=== PATIENT | female | born 1965 | race Caucasian/White ===

== ENCOUNTER 2017-06-16 09:54 | Emergency (ER) | payer BC ==
[~2017-06-16] VITALS: Ht 172.7 cm; Wt 54.5 kg
[~2017-06-16 09:54] MED LIST: ALBU8.5H8 INH; BUPR-84 PO; DULO30CA51 PO; GABA-532 PO; LITH150C8 PO; LORA0.5T PO; OXCA150T PO; PRAM0.258 PO; SYN0.088T PO; TEMA15CA PO; TRAM50TA2 PO
[2017-06-16] MEDS ORDERED: LORazepam 1 MG tablet PO ONE (11:10)
[2017-06-16] MEDS ORDERED: ziprasidone 20mg capsule PO SCH (11:10)
[2017-06-16] MEDS ORDERED: ACAM333T8 PO (11:28)
[2017-06-16] MEDS ORDERED: MESA1.2T PO ×2 (11:28→14:14)
[2017-06-16] MEDS ORDERED: FAMO20TA8 PO (11:28)
[2017-06-16] MEDS ORDERED: LURA20TA PO (11:28)
[2017-06-16] MEDS ORDERED: DISU250T7 PO (11:28)
[2017-06-16] MEDS ORDERED: LEVE500T PO (11:29)
[2017-06-16] MEDS ORDERED: ROPI0.252 PO (11:29)
[2017-06-16] MEDS ORDERED: LORazepam 2 mg/ml vial IM ONE (11:50)
[2017-06-16] MEDS ORDERED: diphenhydrAMINE 50 mg/ml inj IM ONE (11:50)
[2017-06-16 12:37] LABS: BASOPHILS % (AUTO) 0.2 % (0-1); EOSINOPHILS # (AUTO) 0.8 X10'3 (0-0.9); EOSINOPHILS % (AUTO) 8.5 % (0-6); HEMATOCRIT 48.8 % (35.0-45.0); LYMPHOCYTES # (AUTO) 3.1 X10'3 (1.1-4.8); LYMPHOCYTES % (AUTO) 33.7 % (21-51); MEAN CORPUSCULAR HEMOGLOBIN 28.7 PG (27.0-31.0); MEAN CORPUSCULAR HGB CONC 34.8 % (33.0-36.5); MEAN CORPUSCULAR VOLUME 82.5 FL (78-98); MEAN PLATELET VOLUME 6.8 FL (7.4-10.4); MONOCYTES # (AUTO) 0.2 X10'3 (0-0.9); NEUTROPHILS # (AUTO) 5.1 X10'3 (1.8-7.7); NEUTROPHILS % (AUTO) 55.6 % (42-75); PLATELET COUNT 298 X10'3 (140-440); RED BLOOD COUNT 5.92 X10'6 (4.20-5.60); RED CELL DISTRIBUTION WIDTH 13.9 % (11.5-14.5); WHITE BLOOD COUNT 9.2 X10'3 (4.5-11.0)
[2017-06-16 13:01] LABS: ALANINE AMINOTRANSFERASE 51 U/L (12-78); ALBUMIN 4.7 G/DL (3.4-5.0); ALBUMIN/GLOBULIN RATIO 1.3 (1.1-1.5); ALKALINE PHOSPHATASE 120 IU/L (46-116); ANION GAP 17 (8-16); ASPARTATE AMINO TRANSFERASE 42 U/L (10-37); BILIRUBIN,TOTAL 0.6 MG/DL (0.1-1.0); BLOOD UREA NITROGEN 11 MG/DL (7-18); BUN/CREATININE RATIO 11.1 (6.6-38.0); CALCIUM 9.2 MG/DL (8.5-10.1); CHLORIDE 107 MMOL/L (99-107); CREATININE 0.99 MG/DL (0.40-0.90); GLUCOSE 75 MG/DL (70-104); POTASSIUM 3.6 MMOL/L (3.5-5.1); SODIUM 147 MMOL/L (135-145); TOTAL CARBON DIOXIDE 23.4 MMOL/L (24-32); TOTAL PROTEIN 8.4 G/DL (6.4-8.2); eGFR 59 ML/MIN
[2017-06-16 13:02] LABS: URINE HCG NEGATIVE (NEG)
[2017-06-16 13:02] LABS: ACETAMINOPHEN < 2.0 UG/ML (10-30)
[2017-06-16 13:03] LABS: CLARITY,URINE Clear (Clear); COLOR,URINE Yellow (Yellow); GLUCOSE, URINE Negative (Neg); KETONES,URINE Negative (Neg); LEUKOCYTE ESTERASE ,URINE Trace (Neg); NITRITES, URINE Negative (Neg); OCCULT BLOOD,URINE Negative (Neg); PROTEIN,URINE Negative (Neg); UROBILINOGEN,URINE 0.2 E.U/dL (0.2-1.0)
[2017-06-16 13:12] LABS: UA COLLECTION TYPE CLN CATCH MIDSTREAM; URINE AMPHETAMINE SCREEN POSITIVE (Neg); URINE BARBITUATE SCREEN NEGATIVE (Neg); URINE BENZODIAZEPINES SCREEN NEGATIVE (Neg); URINE CANNABINOID SCREEN NEGATIVE (Neg); URINE COCAINE SCREEN NEGATIVE (Neg); URINE METHADONE SCREEN NEGATIVE (Neg); URINE OPIATE SCREEN NEGATIVE (Neg); URINE PHENCYCLIDINE SCREEN NEGATIVE (Neg)
[2017-06-16 13:18] LABS: BACTERIA,URINE NONE SEEN /HPF (Neg); RBC,URINE NONE SEEN /HPF (0-2); SQUAMOUS EPITHELIAL CELL,UR FEW /LPF (FEW); WBC,URINE NONE SEEN /HPF (0-4)
[2017-06-16] MEDS ORDERED: LITH450T2 PO (14:14)
[2017-06-16] MEDS ORDERED: PRAM0.122 PO (14:14)
[2017-06-16] MEDS ORDERED: GABA-532 PO (14:14)
[2017-06-16] MEDS ORDERED: DULO-31 PO (14:14)
[2017-06-16] MEDS ORDERED: SYN0.088T PO (14:29)
[2017-06-16] MEDS ORDERED: OXCA150T PO (14:46)
[2017-06-16] MEDS ORDERED: OXCA150T53 PO (14:46)
[2017-06-16] MEDS ORDERED: albuterol 2.5 MG/3 ML nebule NEB PRN (16:00)
[2017-06-16] MEDS: acamprosate DR 333mg Tablet PO SCH (21:00)
[2017-06-16] MEDS ORDERED: pramipexole 0.25mg tablet PO SCH (21:00)
[2017-06-16] MEDS: gabapentin 300mg capsule PO SCH (21:03)
[2017-06-16] MEDS: levetiracetam 250mg tablet PO SCH (21:03)
[2017-06-16] MEDS: oxcarbazepine 150mg tablet PO SCH (21:04)
[2017-06-16] MEDS: lithium carbonate 450mg CR tablet PO SCH (21:05)
[2017-06-17] MEDS ORDERED: lurasidone 20mg tablet PO SCH (08:00)
[2017-06-17] MEDS ORDERED: mesalamine 1.2gm ER tablet PO SCH (08:00)
[2017-06-17] MEDS ORDERED: duloxetine 30mg CAPSULE.DR PO SCH (08:00)
[2017-06-17] MEDS ORDERED: levoTHYROXINE 88mcg tablet PO SCH (08:00)
[2017-06-17] MEDS: gabapentin 300mg capsule PO SCH (08:20)
[2017-06-17] MEDS: lithium carbonate 450mg CR tablet PO SCH (08:21)
[2017-06-17] MEDS: oxcarbazepine 150mg tablet PO SCH (08:21)
[2017-06-17] MEDS: acamprosate DR 333mg Tablet PO SCH (08:22)
[2017-06-17] MEDS: levetiracetam 250mg tablet PO SCH (08:32)
[2017-06-17] MEDS ORDERED: BUPR300T53 PO (09:06)
[2017-06-17] MEDS ORDERED: ibuprofen tablet 400 MG TABLET PO PRN (09:20)
[2017-06-17] MEDS ORDERED: buproprion 150mg XL (24-hour) tablet PO SCH (10:00)
[2017-06-17] MEDS ORDERED: buPROPion SR 150mg tablet PO SCH (10:30)
[2017-06-17] MEDS ORDERED: buPROPion SR 150mg tablet PO ONE (10:35)
[2017-06-17 12:46] VITALS: BP 101/65
== END 2017-06-17 12:49 | disposition home or self-care (01) ==
LOC: ER 09:54
DX: R45.851 Suicidal ideations (principal); F15.10 Other stimulant abuse, uncomplicated; F10.129 Alcohol abuse with intoxication, unspecified; F32.9 Major depressive disorder, single episode, unspecified
CPT/HCPCS: 36415; 80053; 80305; 80320; 80329; 81001; 81025; 84443; 85025; 96372; 99285; J1200; J2060

== ENCOUNTER 2017-11-14 18:30 | Inpatient (IN) | payer BC ==
[~2017-11-14] VITALS: Ht 170.2 cm; Wt 60.6 kg
[~2017-11-14 18:30] MED LIST changes: -ALBU8.5H8 INH; -BUPR-84 PO; +DULO-31 PO; -DULO30CA51 PO; +LEVE500T PO; -LITH150C8 PO; +LITH450T2 PO; -LORA0.5T PO; +MESA1.2T PO; +PRAM0.122 PO; -PRAM0.258 PO; -SYN0.088T PO; -TEMA15CA PO; -TRAM50TA2 PO
[2017-11-14] MEDS ORDERED: magnesium hydroxide 30ml (MOM) UD suspension PO PRN (23:00)
[2017-11-14] MEDS ORDERED: mag hydrox/Alum hydrox/simeth 30ml oral suspension PO PRN (23:00)
[2017-11-15] MEDS ORDERED: BUPR150T8 PO (00:36)
[2017-11-15] MEDS ORDERED: QUET25TA PO ×2 (00:36→01:46)
[2017-11-15] MEDS ORDERED: PANT-47 PO (00:36)
[2017-11-15] MEDS ORDERED: DISU250T7 PO (00:36)
[2017-11-15] MEDS ORDERED: SYN0.088T PO (00:36)
[2017-11-15] MEDS ORDERED: FOLI0.4T2 PO (00:36)
[2017-11-15] MEDS ORDERED: FERR325T28 PO (00:36)
[2017-11-15] MEDS ORDERED: LACTC PO (00:36)
[2017-11-15] MEDS ORDERED: SENN-161 PO (00:36)
[2017-11-15] MEDS ORDERED: HYDR-565 PO (00:36)
[2017-11-15] MEDS ORDERED: TEMA30CA5 PO (00:36)
[2017-11-15] MEDS: temazepam 15mg capsule PO PRN ×2 (02:36→20:30)
[2017-11-15] MEDS: HYDROcodone/acetaminophen 10/325mg tab PO PRN ×4 (02:37→20:40)
[2017-11-15] MEDS ORDERED: BUPR300T54 PO (06:08)
[2017-11-15 08:00] VITALS: BP 98/63
[2017-11-15] MEDS ORDERED: BUPROPION HCL PO SCH (08:00)
[2017-11-15] MEDS ORDERED: buPROPion SR 150mg tablet PO SCH ×2 (08:00)
[2017-11-15] MEDS ORDERED: DISULFIRAM 250 MG PO SCH (08:00)
[2017-11-15] MEDS: gabapentin 300mg capsule PO SCH ×3 (08:02→20:30)
[2017-11-15] MEDS: folic acid 1mg tablet PO SCH (08:02)
[2017-11-15] MEDS: duloxetine 30mg CAPSULE.DR PO SCH (08:02)
[2017-11-15] MEDS: lactobacillus rhamnosus 10,000 MMU CELLS/CAPSULE PO SCH (08:02)
[2017-11-15] MEDS: ferrous sulfate 325mg tablet PO SCH (08:03)
[2017-11-15] MEDS: levoTHYROXINE 75mcg tablet PO SCH (08:03)
[2017-11-15] MEDS: pantoprazole 40mg Tablet.DR PO SCH (08:03)
[2017-11-15] MEDS: sennosides 8.6mg tablet PO PRN (08:12)
[2017-11-15 08:41] LABS: BASOPHILS # (AUTO) 0.1 X10'3 (0-0.2); BASOPHILS % (AUTO) 0.5 % (0-1); EOSINOPHILS # (AUTO) 0.3 X10'3 (0-0.9); EOSINOPHILS % (AUTO) 3.7 % (0-6); HEMATOCRIT 24.9 % (35.0-45.0); HEMOGLOBIN 8.4 g/dl (12.0-16.0); LYMPHOCYTES # (AUTO) 2.7 X10'3 (1.1-4.8); LYMPHOCYTES % (AUTO) 28.5 % (21-51); MEAN CORPUSCULAR HEMOGLOBIN 28.9 PG (27.0-31.0); MEAN CORPUSCULAR HGB CONC 33.6 % (33.0-36.5); MEAN CORPUSCULAR VOLUME 86.1 FL (78-98); MEAN PLATELET VOLUME 6.9 FL (7.4-10.4); MONOCYTES # (AUTO) 0.4 X10'3 (0-0.9); MONOCYTES % (AUTO) 4.7 % (2-12); NEUTROPHILS % (AUTO) 62.6 % (42-75); PLATELET COUNT 388 X10'3 (140-440); RED BLOOD COUNT 2.89 X10'6 (4.20-5.60); RED CELL DISTRIBUTION WIDTH 15.3 % (11.5-14.5); WHITE BLOOD COUNT 9.5 X10'3 (4.5-11.0)
[2017-11-15 08:53] LABS: ALANINE AMINOTRANSFERASE 32 U/L (12-78); ALBUMIN 2.1 G/DL (3.4-5.0); ALBUMIN/GLOBULIN RATIO 0.4 (1.1-1.5); ALKALINE PHOSPHATASE 138 IU/L (46-116); ANION GAP 9 (8-16); ASPARTATE AMINO TRANSFERASE 16 U/L (10-37); BILIRUBIN,TOTAL 0.3 MG/DL (0.1-1.0); BLOOD UREA NITROGEN 14 MG/DL (7-18); BUN/CREATININE RATIO 11.1 (6.6-38.0); CALCIUM 8.9 MG/DL (8.5-10.1); CHLORIDE 102 MMOL/L (99-107); CHOL/HDL RATIO 3.3 (0.00-4.99); CHOLESTEROL 121 MG/DL (0-200); CREATININE 1.26 MG/DL (0.40-0.90); GLUCOSE 85 MG/DL (70-104); HDL CHOLESTEROL 37 MG/DL (35-60); LDL CHOLESTEROL 68 MG/DL (50-100); POTASSIUM 3.8 MMOL/L (3.5-5.1); SODIUM 138 MMOL/L (135-145); TOTAL CARBON DIOXIDE 27.3 MMOL/L (24-32); TOTAL PROTEIN 7.5 G/DL (6.4-8.2); TRIGLYCERIDES 125 MG/DL (20-135); eGFR 45 ML/MIN
[2017-11-15 09:11] LABS: HEMOGLOBIN A1C 5.3 % (4.5-6.2)
[2017-11-15] MEDS: buPROPion SR 100mg tab PO SCH (12:57)
[2017-11-15 20:00] VITALS: BP 101/71
[2017-11-15] MEDS ORDERED: QUEtiapine 25mg tablet PO PRN (21:00)
[2017-11-16] MEDS: HYDROcodone/acetaminophen 10/325mg tab PO PRN ×3 (06:52→16:02)
[2017-11-16] MEDS: levoTHYROXINE 75mcg tablet PO SCH (06:52)
[2017-11-16] MEDS: gabapentin 300mg capsule PO SCH ×3 (07:52→20:25)
[2017-11-16] MEDS: folic acid 1mg tablet PO SCH (07:52)
[2017-11-16] MEDS: duloxetine 30mg CAPSULE.DR PO SCH (07:53)
[2017-11-16] MEDS: pantoprazole 40mg Tablet.DR PO SCH (07:53)
[2017-11-16] MEDS: buPROPion SR 100mg tab PO SCH ×2 (07:53→12:30)
[2017-11-16] MEDS: lactobacillus rhamnosus 10,000 MMU CELLS/CAPSULE PO SCH (07:53)
[2017-11-16] MEDS: ferrous sulfate 325mg tablet PO SCH (07:53)
[2017-11-16 08:00] VITALS: BP 96/68
[2017-11-16 08:04] LABS: BASOPHILS % (AUTO) 0.4 % (0-1); EOSINOPHILS # (AUTO) 0.3 X10'3 (0-0.9); EOSINOPHILS % (AUTO) 3.1 % (0-6); HEMATOCRIT 25.2 % (35.0-45.0); HEMOGLOBIN 8.4 g/dl (12.0-16.0); LYMPHOCYTES # (AUTO) 2.3 X10'3 (1.1-4.8); LYMPHOCYTES % (AUTO) 21.7 % (21-51); MEAN CORPUSCULAR HEMOGLOBIN 28.7 PG (27.0-31.0); MEAN CORPUSCULAR HGB CONC 33.6 % (33.0-36.5); MEAN CORPUSCULAR VOLUME 85.5 FL (78-98); MEAN PLATELET VOLUME 6.9 FL (7.4-10.4); MONOCYTES # (AUTO) 0.4 X10'3 (0-0.9); MONOCYTES % (AUTO) 4.2 % (2-12); NEUTROPHILS # (AUTO) 7.4 X10'3 (1.8-7.7); NEUTROPHILS % (AUTO) 70.6 % (42-75); PLATELET COUNT 415 X10'3 (140-440); RED BLOOD COUNT 2.94 X10'6 (4.20-5.60); RED CELL DISTRIBUTION WIDTH 15.8 % (11.5-14.5); WHITE BLOOD COUNT 10.4 X10'3 (4.5-11.0)
[2017-11-16] MEDS: sennosides 8.6mg tablet PO PRN (08:06)
[2017-11-16 19:53] VITALS: BP 104/72
[2017-11-16] MEDS: temazepam 15mg capsule PO PRN (21:32)
[2017-11-17] MEDS: HYDROcodone/acetaminophen 10/325mg tab PO PRN ×2 (07:37→12:57)
[2017-11-17] MEDS: levoTHYROXINE 75mcg tablet PO SCH (07:40)
[2017-11-17] MEDS: buPROPion SR 100mg tab PO SCH ×2 (07:40→12:53)
[2017-11-17 08:00] VITALS: BP 104/65
[2017-11-17] MEDS: Protein Shake (high protein) 240ml (8oz) cup PO SCH ×3 (08:00→18:00)
[2017-11-17] MEDS: duloxetine 30mg CAPSULE.DR PO SCH (08:13)
[2017-11-17] MEDS: gabapentin 300mg capsule PO SCH ×3 (08:13→20:15)
[2017-11-17] MEDS: lactobacillus rhamnosus 10,000 MMU CELLS/CAPSULE PO SCH (08:14)
[2017-11-17] MEDS: sennosides 8.6mg tablet PO PRN (08:14)
[2017-11-17] MEDS: ferrous sulfate 325mg tablet PO SCH (08:14)
[2017-11-17] MEDS: pantoprazole 40mg Tablet.DR PO SCH (08:15)
[2017-11-17] MEDS: folic acid 1mg tablet PO SCH (08:15)
[2017-11-17 20:00] VITALS: BP 106/66
[2017-11-17] MEDS: HYDROcodone/acetaminophen 5mg/325mg tablet PO PRN (20:16)
[2017-11-17] MEDS: temazepam 15mg capsule PO PRN (21:29)
[2017-11-18] MEDS: buPROPion SR 100mg tab PO SCH ×2 (07:07→12:46)
[2017-11-18] MEDS: levoTHYROXINE 75mcg tablet PO SCH (07:07)
[2017-11-18] MEDS: acetaminophen 325mg tablet PO PRN ×3 (07:07→18:02)
[2017-11-18 08:00] VITALS: BP 98/60
[2017-11-18] MEDS: lactobacillus rhamnosus 10,000 MMU CELLS/CAPSULE PO SCH (08:23)
[2017-11-18] MEDS: ferrous sulfate 325mg tablet PO SCH (08:23)
[2017-11-18] MEDS: pantoprazole 40mg Tablet.DR PO SCH (08:23)
[2017-11-18] MEDS: duloxetine 30mg CAPSULE.DR PO SCH (08:23)
[2017-11-18] MEDS: folic acid 1mg tablet PO SCH (08:23)
[2017-11-18] MEDS: gabapentin 300mg capsule PO SCH ×3 (08:23→21:45)
[2017-11-18] MEDS: Protein Shake (high protein) 240ml (8oz) cup PO SCH ×3 (08:53→18:00)
[2017-11-18] MEDS: sennosides 8.6mg tablet PO PRN (08:54)
[2017-11-18 19:00] VITALS: BP 112/72
[2017-11-18] MEDS: temazepam 15mg capsule PO PRN (21:45)
[2017-11-19] MEDS: acetaminophen 325mg tablet PO PRN ×3 (04:33→21:31)
[2017-11-19] MEDS: HYDROcodone/acetaminophen 5mg/325mg tablet PO PRN (05:38)
[2017-11-19] MEDS: pantoprazole 40mg Tablet.DR PO SCH (07:13)
[2017-11-19] MEDS: buPROPion SR 100mg tab PO SCH ×2 (07:13→12:26)
[2017-11-19] MEDS: levoTHYROXINE 75mcg tablet PO SCH (07:13)
[2017-11-19] MEDS: ferrous sulfate 325mg tablet PO SCH (07:55)
[2017-11-19] MEDS: lactobacillus rhamnosus 10,000 MMU CELLS/CAPSULE PO SCH (07:55)
[2017-11-19] MEDS: folic acid 1mg tablet PO SCH (07:56)
[2017-11-19] MEDS: duloxetine 30mg CAPSULE.DR PO SCH (07:56)
[2017-11-19] MEDS: gabapentin 300mg capsule PO SCH ×3 (07:56→20:07)
[2017-11-19 08:00] VITALS: BP 112/73
[2017-11-19] MEDS: Protein Shake (high protein) 240ml (8oz) cup PO SCH ×3 (08:00→18:00)
[2017-11-19] MEDS ORDERED: duloxetine 30mg CAPSULE.DR PO ONE (13:00)
[2017-11-19] MEDS ORDERED: HYDROcodone/acetaminophen 5mg/325mg tablet PO PRN (13:05)
[2017-11-19] MEDS ORDERED: bisacodyl 5mg tablet.DR PO ONE (18:05)
[2017-11-19 19:00] VITALS: BP 108/67
[2017-11-19] MEDS ORDERED: glycerin ADULT rectal suppository RC ONE (19:05)
[2017-11-19] MEDS ORDERED: ondansetron 4mg rapidly disintigrating tab PO PRN (19:05)
[2017-11-19 19:53] LABS: BASOPHILS # (AUTO) 0.1 X10'3 (0-0.2); BASOPHILS % (AUTO) 0.7 % (0-1); EOSINOPHILS # (AUTO) 0.4 X10'3 (0-0.9); EOSINOPHILS % (AUTO) 3.6 % (0-6); HEMATOCRIT 29.5 % (35.0-45.0); HEMOGLOBIN 9.9 g/dl (12.0-16.0); LYMPHOCYTES # (AUTO) 2.7 X10'3 (1.1-4.8); LYMPHOCYTES % (AUTO) 24.7 % (21-51); MEAN CORPUSCULAR HGB CONC 33.8 % (33.0-36.5); MEAN CORPUSCULAR VOLUME 85.8 FL (78-98); MEAN PLATELET VOLUME 6.5 FL (7.4-10.4); MONOCYTES # (AUTO) 0.4 X10'3 (0-0.9); MONOCYTES % (AUTO) 3.8 % (2-12); NEUTROPHILS # (AUTO) 7.3 X10'3 (1.8-7.7); NEUTROPHILS % (AUTO) 67.2 % (42-75); PLATELET COUNT 469 X10'3 (140-440); RED BLOOD COUNT 3.43 X10'6 (4.20-5.60); RED CELL DISTRIBUTION WIDTH 15.9 % (11.5-14.5); WHITE BLOOD COUNT 10.9 X10'3 (4.5-11.0)
[2017-11-19] MEDS ORDERED: metoclopramide 10mg tablet PO SCH (20:00)
[2017-11-19] MEDS: docusate sod 100mg capsule PO SCH (20:07)
[2017-11-19] MEDS: temazepam 15mg capsule PO PRN (21:30)
[2017-11-20] MEDS ORDERED: metoclopramide 10mg tablet PO PRN (02:00)
[2017-11-20] MEDS: pantoprazole 40mg Tablet.DR PO SCH (07:08)
[2017-11-20] MEDS: levoTHYROXINE 75mcg tablet PO SCH (07:08)
[2017-11-20 08:00] VITALS: BP 96/65
[2017-11-20] MEDS: folic acid 1mg tablet PO SCH (08:14)
[2017-11-20] MEDS: lactobacillus rhamnosus 10,000 MMU CELLS/CAPSULE PO SCH (08:14)
[2017-11-20] MEDS: docusate sod 100mg capsule PO SCH ×2 (08:14→20:32)
[2017-11-20] MEDS: gabapentin 300mg capsule PO SCH ×3 (08:14→20:31)
[2017-11-20] MEDS: buPROPion SR 100mg tab PO SCH ×2 (08:14→13:07)
[2017-11-20] MEDS: ferrous sulfate 325mg tablet PO SCH (08:14)
[2017-11-20] MEDS: Protein Shake (high protein) 240ml (8oz) cup PO SCH ×3 (08:15→18:00)
[2017-11-20] MEDS: acetaminophen 325mg tablet PO PRN ×3 (08:17→20:32)
[2017-11-20] MEDS: duloxetine 30mg CAPSULE.DR PO SCH (08:17)
[2017-11-20] MEDS: HYDROcodone/acetaminophen 5mg/325mg tablet PO PRN (15:47)
[2017-11-20] MEDS: amox tr/potassium clavulanate 875/125mg TAB PO SCH (15:53)
[2017-11-20] MEDS ORDERED: glycerin ADULT rectal suppository RC ONE (16:20)
[2017-11-20 19:49] VITALS: BP 106/71
[2017-11-20] MEDS: temazepam 15mg capsule PO PRN (20:32)
[2017-11-21] MEDS: HYDROcodone/acetaminophen 5mg/325mg tablet PO PRN (03:54)
[2017-11-21] MEDS: duloxetine 30mg CAPSULE.DR PO SCH (07:17)
[2017-11-21] MEDS: ferrous sulfate 325mg tablet PO SCH (07:17)
[2017-11-21] MEDS: docusate sod 100mg capsule PO SCH (07:17)
[2017-11-21] MEDS: pantoprazole 40mg Tablet.DR PO SCH (07:17)
[2017-11-21] MEDS: buPROPion SR 100mg tab PO SCH (07:17)
[2017-11-21] MEDS: gabapentin 300mg capsule PO SCH (07:17)
[2017-11-21] MEDS: lactobacillus rhamnosus 10,000 MMU CELLS/CAPSULE PO SCH (07:17)
[2017-11-21] MEDS: folic acid 1mg tablet PO SCH (07:17)
[2017-11-21] MEDS: levoTHYROXINE 75mcg tablet PO SCH (07:17)
[2017-11-21 08:00] VITALS: BP 106/71
[2017-11-21] MEDS: Protein Shake (high protein) 240ml (8oz) cup PO SCH (08:00)
[2017-11-21] MEDS: amox tr/potassium clavulanate 875/125mg TAB PO SCH (08:17)
[2017-11-21] MEDS ORDERED: TEMA30CA PO (08:21)
[2017-11-21] MEDS ORDERED: LACT1CAP26 PO (08:21)
[2017-11-21] MEDS ORDERED: PANT40TA4 PO (08:21)
[2017-11-21] MEDS ORDERED: LEVO75TA7 PO (08:21)
[2017-11-21] MEDS ORDERED: HYDR-569 PO (08:21)
[2017-11-21] MEDS ORDERED: FOLI1TAB16 PO (08:21)
[2017-11-21] MEDS ORDERED: DULO60CA64 PO (08:21)
[2017-11-21] MEDS ORDERED: AMOX-580 PO (08:21)
[2017-11-21] MEDS ORDERED: FER325T PO (08:21)
[2017-11-21] MEDS ORDERED: GABA300C PO (08:21)
[2017-11-21] MEDS ORDERED: BUPR200T3 PO (08:21)
[2017-11-21] MEDS ORDERED: COL100C PO (08:21)
[2017-11-21] MEDS: acetaminophen 325mg tablet PO PRN (09:42)
== END 2017-11-21 10:55 | disposition home or self-care (01) | DRG 885 ==
LOC: ADULT MH 18:30
PROVIDERS: ADMIT Psychiatry & Neurology Psychiatry; ATTEND Psychiatry & Neurology Neurology with Special Qualifications in Child Neurology
DX: F33.2 Major depressive disorder, recurrent severe without psychotic features (principal); R45.851 Suicidal ideations; B95.61 Methicillin susceptible Staphylococcus aureus infection as the cause of diseases classified elsewhere; B95.4 Other streptococcus as the cause of diseases classified elsewhere; E03.9 Hypothyroidism, unspecified; F10.20 Alcohol dependence, uncomplicated; D50.9 Iron deficiency anemia, unspecified; K21.9 Gastro-esophageal reflux disease without esophagitis; J45.909 Unspecified asthma, uncomplicated; K59.00 Constipation, unspecified; R45.87 Impulsiveness; Z90.49 Acquired absence of other specified parts of digestive tract; Z71.89 Other specified counseling; Z79.899 Other long term (current) drug therapy; Z87.891 Personal history of nicotine dependence; Z86.011 Personal history of benign neoplasm of the brain
CPT/HCPCS: 36415; 80053; 80061; 83036; 84443; 85025; 87070; 87075; 87077; 87102; 87186; A4649; A6250; A6253; A6255; A6449

== ENCOUNTER 2017-11-25 09:24 | Day surgery (SDC) | payer BC ==
[~2017-11-25 09:24] MED LIST changes: +AMOX-580 PO; +BUPR200T3 PO; +COL100C PO; -DULO-31 PO; +DULO60CA64 PO; +FER325T PO; +FOLI1TAB16 PO; -GABA-532 PO; +GABA300C PO; +HYDR-569 PO; +LACT1CAP26 PO; -LEVE500T PO; +LEVO75TA7 PO; -LITH450T2 PO; -MESA1.2T PO; -OXCA150T PO; +PANT40TA4 PO; -PRAM0.122 PO; +TEMA30CA PO
[2017-11-25] MEDS ORDERED: LIDOcaine 2% 5ml jelly ONE (11:25)
== END 2017-11-25 12:04 | disposition home or self-care (01) ==
LOC: WOUND CARE 09:24
PROVIDERS: ADMIT Psychiatry & Neurology Psychiatry; ATTEND Surgery
DX: T81.89XA Other complications of procedures, not elsewhere classified, initial encounter (principal); L98.492 Non-pressure chronic ulcer of skin of other sites with fat layer exposed; K21.9 Gastro-esophageal reflux disease without esophagitis; E03.9 Hypothyroidism, unspecified; J45.909 Unspecified asthma, uncomplicated; F10.10 Alcohol abuse, uncomplicated; F33.2 Major depressive disorder, recurrent severe without psychotic features; Z90.49 Acquired absence of other specified parts of digestive tract; Z86.011 Personal history of benign neoplasm of the brain; Z79.899 Other long term (current) drug therapy; Y83.8 Other surgical procedures as the cause of abnormal reaction of the patient, or of later complication, without mention of misadventure at the time of the procedure
CPT/HCPCS: 97597; 97598; A6021; A6206; A6213

== ENCOUNTER 2017-12-02 09:32 | Day surgery (SDC) | payer BC ==
[~2017-12-02 09:32] MED LIST changes: -COL100C PO; -HYDR-569 PO
[2017-12-02] MEDS: LIDOcaine 2% 5ml jelly ONE (10:48)
== END 2017-12-02 12:06 | disposition home or self-care (01) ==
LOC: WOUND CARE 09:32
PROVIDERS: ADMIT Psychiatry & Neurology Psychiatry; ATTEND Surgery
DX: T81.89XD Other complications of procedures, not elsewhere classified, subsequent encounter (principal); L98.492 Non-pressure chronic ulcer of skin of other sites with fat layer exposed; K21.9 Gastro-esophageal reflux disease without esophagitis; E03.9 Hypothyroidism, unspecified; J45.909 Unspecified asthma, uncomplicated; F10.10 Alcohol abuse, uncomplicated; F33.2 Major depressive disorder, recurrent severe without psychotic features; Z90.49 Acquired absence of other specified parts of digestive tract; Z86.011 Personal history of benign neoplasm of the brain; Z79.899 Other long term (current) drug therapy; Y83.8 Other surgical procedures as the cause of abnormal reaction of the patient, or of later complication, without mention of misadventure at the time of the procedure
CPT/HCPCS: 17250; A6021; A6206; A6213

== ENCOUNTER 2017-12-14 10:02 | Day surgery (SDC) | payer BC ==
[2017-12-14] MEDS ORDERED: LIDOcaine 2% 5ml jelly ONE ×2 (11:08→11:28)
== END 2017-12-14 11:50 | disposition home or self-care (01) ==
LOC: WOUND CARE 10:02
PROVIDERS: ADMIT Psychiatry & Neurology Psychiatry; ATTEND Surgery
DX: T81.89XD Other complications of procedures, not elsewhere classified, subsequent encounter (principal); L98.492 Non-pressure chronic ulcer of skin of other sites with fat layer exposed
CPT/HCPCS: 97597; 97598; A6021; A6206; A6213

== ENCOUNTER 2017-12-21 10:10 | Day surgery (SDC) | payer BC ==
[2017-12-21] MEDS ORDERED: LIDOcaine 2% 5ml jelly ONE (10:23)
== END 2017-12-21 11:30 | disposition home or self-care (01) ==
LOC: WOUND CARE 10:10
PROVIDERS: ATTEND Surgery
DX: T81.89XD Other complications of procedures, not elsewhere classified, subsequent encounter (principal); L98.492 Non-pressure chronic ulcer of skin of other sites with fat layer exposed; K21.9 Gastro-esophageal reflux disease without esophagitis; E03.9 Hypothyroidism, unspecified; J45.909 Unspecified asthma, uncomplicated; F10.10 Alcohol abuse, uncomplicated; F33.2 Major depressive disorder, recurrent severe without psychotic features; Z90.49 Acquired absence of other specified parts of digestive tract; Z86.011 Personal history of benign neoplasm of the brain; Z79.899 Other long term (current) drug therapy; Y83.8 Other surgical procedures as the cause of abnormal reaction of the patient, or of later complication, without mention of misadventure at the time of the procedure
CPT/HCPCS: 97597; 97598; A6021; A6206; A6213

== ENCOUNTER 2018-01-12 09:57 | Day surgery (SDC) | payer BC ==
[2018-01-12] MEDS ORDERED: LIDOcaine/PRILOcaine 5gm cream TP ONE (11:32)
== END 2018-01-12 13:30 | disposition home or self-care (01) ==
LOC: WOUND CARE 09:57
PROVIDERS: ATTEND Surgery
DX: T81.89XD Other complications of procedures, not elsewhere classified, subsequent encounter (principal); L98.492 Non-pressure chronic ulcer of skin of other sites with fat layer exposed; K21.9 Gastro-esophageal reflux disease without esophagitis; E03.9 Hypothyroidism, unspecified; J45.909 Unspecified asthma, uncomplicated; F10.10 Alcohol abuse, uncomplicated; F33.2 Major depressive disorder, recurrent severe without psychotic features; Z90.49 Acquired absence of other specified parts of digestive tract; Z86.011 Personal history of benign neoplasm of the brain; Z79.899 Other long term (current) drug therapy; Y83.8 Other surgical procedures as the cause of abnormal reaction of the patient, or of later complication, without mention of misadventure at the time of the procedure
CPT/HCPCS: 17250; A6021; A6206; A6213

== ENCOUNTER 2019-07-11 14:23 | Emergency (ER) | payer BC ==
[~2019-07-11] VITALS: Ht 170.2 cm; Wt 59.0 kg
[~2019-07-11 14:23] MED LIST changes: -AMOX-580 PO; -DULO60CA64 PO; +DULO60CA65 PO
[2019-07-11] MEDS ORDERED: normal saline 1000ML IV soln IVB ONE (15:00)
[2019-07-11 15:19] LABS: BASOPHILS % (AUTO) 0.4 % (0-1); EOSINOPHILS # (AUTO) 0.1 X10'3 (0-0.9); HEMATOCRIT 38.5 % (35.0-45.0); HEMOGLOBIN 13.1 g/dl (12.0-16.0); MEAN CORPUSCULAR HEMOGLOBIN 28.6 PG (27.0-31.0); MEAN CORPUSCULAR HGB CONC 33.9 g/dL (33.0-36.5); MEAN CORPUSCULAR VOLUME 84.4 FL (78-98); MEAN PLATELET VOLUME 6.7 FL (7.4-10.4); MONOCYTES # (AUTO) 0.2 X10'3 (0-0.9); MONOCYTES % (AUTO) 3.4 % (2-12); NEUTROPHILS # (AUTO) 4.6 X10'3 (1.8-7.7); NEUTROPHILS % (AUTO) 66.2 % (42-75); PLATELET COUNT 243 X10'3 (140-440); RED BLOOD COUNT 4.56 X10'6 (4.20-5.60); RED CELL DISTRIBUTION WIDTH 13.9 % (11.5-14.5)
[2019-07-11 15:37] LABS: ALANINE AMINOTRANSFERASE 31 U/L (12-78); ALBUMIN 3.3 G/DL (3.4-5.0); ALKALINE PHOSPHATASE 94 IU/L (46-116); ANION GAP 12 (8-16); ASPARTATE AMINO TRANSFERASE 28 U/L (10-37); BILIRUBIN,TOTAL 0.4 MG/DL (0.1-1.0); BLOOD UREA NITROGEN 16 MG/DL (7-18); BUN/CREATININE RATIO 15.5 (6.6-38.0); CALCIUM 8.3 MG/DL (8.5-10.1); CHLORIDE 107 MMOL/L (99-107); CREATININE 1.03 MG/DL (0.40-0.90); GLUCOSE 105 MG/DL (70-104); POTASSIUM 3.4 MMOL/L (3.5-5.1); SODIUM 142 MMOL/L (135-145); TOTAL CARBON DIOXIDE 22.7 MMOL/L (24-32); TOTAL PROTEIN 6.5 G/DL (6.4-8.2); eGFR 56 ML/MIN
[2019-07-11 15:38] LABS: ETHANOL 0.293 GM/DL (0.0-0.010)
[2019-07-11 16:00] LABS: URINE AMPHETAMINE SCREEN NEGATIVE (Neg); URINE BARBITUATE SCREEN POSITIVE (Neg); URINE BENZODIAZEPINES SCREEN NEGATIVE (Neg); URINE CANNABINOID SCREEN NEGATIVE (Neg); URINE COCAINE SCREEN NEGATIVE (Neg); URINE METHADONE SCREEN NEGATIVE (Neg); URINE OPIATE SCREEN NEGATIVE (Neg); URINE PHENCYCLIDINE SCREEN NEGATIVE (Neg)
[2019-07-11 17:35] VITALS: BP 107/77
== END 2019-07-11 18:23 | disposition home or self-care (01) ==
LOC: ER 14:23
DX: F10.129 Alcohol abuse with intoxication, unspecified (principal); G62.9 Polyneuropathy, unspecified; F32.9 Major depressive disorder, single episode, unspecified; R41.82 Altered mental status, unspecified; Z98.890 Other specified postprocedural states; Y90.0 Blood alcohol level of less than 20 mg/100 ml
CPT/HCPCS: 36415; 80053; 80305; 80320; 85025; 96360; 96361; 99284; J7030

== ENCOUNTER 2020-11-19 11:39 | Emergency (ER) | payer BC ==
[~2020-11-19] VITALS: Ht 172.7 cm; Wt 57.9 kg
[~2020-11-19 11:39] MED LIST changes: -PANT40TA4 PO; +PANT40TA54 PO
[2020-11-19] MEDS ORDERED: normal saline 1000ML IV soln IVB ONE (13:30)
[2020-11-19] MEDS ORDERED: diphenhydrAMINE 50 mg/ml inj IV ONE (14:10)
[2020-11-19 14:22] LABS: BASOPHILS % (AUTO) 0.4 % (0-1); EOSINOPHILS # (AUTO) 0.1 X10'3 (0-0.9); EOSINOPHILS % (AUTO) 1.4 % (0-6); HEMATOCRIT 45.4 % (35.0-45.0); LYMPHOCYTES # (AUTO) 2.2 X10'3 (1.1-4.8); LYMPHOCYTES % (AUTO) 21.3 % (21-51); MEAN CORPUSCULAR HEMOGLOBIN 28.7 PG (27.0-31.0); MEAN CORPUSCULAR HGB CONC 33.1 g/dL (33.0-36.5); MEAN CORPUSCULAR VOLUME 86.7 FL (78-98); MEAN PLATELET VOLUME 7.4 FL (7.4-10.4); MONOCYTES # (AUTO) 0.4 X10'3 (0-0.9); NEUTROPHILS # (AUTO) 7.4 X10'3 (1.8-7.7); NEUTROPHILS % (AUTO) 72.9 % (42-75); PLATELET COUNT 352 X10'3 (140-440); RED BLOOD COUNT 5.24 X10'6 (4.20-5.60); RED CELL DISTRIBUTION WIDTH 13.4 % (11.5-14.5); WHITE BLOOD COUNT 10.2 X10'3 (4.5-11.0)
[2020-11-19 14:41] LABS: ALANINE AMINOTRANSFERASE 33 U/L (12-78); ALBUMIN 4.4 G/DL (3.4-5.0); ALBUMIN/GLOBULIN RATIO 1.1 (1.1-1.5); ALKALINE PHOSPHATASE 114 IU/L (46-116); ANION GAP 13 (8-16); BILIRUBIN,TOTAL 0.7 MG/DL (0.1-1.0); BLOOD UREA NITROGEN 24 MG/DL (7-18); BUN/CREATININE RATIO 20.9 (6.6-38.0); CALCIUM 9.5 MG/DL (8.5-10.1); CHLORIDE 101 MMOL/L (99-107); CREATININE 1.15 MG/DL (0.40-0.90); GLUCOSE 95 MG/DL (70-104); SODIUM 138 MMOL/L (135-145); TOTAL CARBON DIOXIDE 24.1 MMOL/L (24-32); TOTAL PROTEIN 8.3 G/DL (6.4-8.2); eGFR 49 ML/MIN
[2020-11-19 14:42] LABS: ASPARTATE AMINO TRANSFERASE 27 U/L (10-37); POTASSIUM 3.7 MMOL/L (3.5-5.1)
[2020-11-19 15:08] LABS: CLARITY,URINE SLIGHTLY CLOUDY (Clear); COLOR,URINE YELLOW (Yellow); GLUCOSE, URINE NEGATIVE (Neg); KETONES,URINE NEGATIVE (Neg); LEUKOCYTE ESTERASE ,URINE LARGE (Neg); NITRITES, URINE NEGATIVE (Neg); OCCULT BLOOD,URINE TRACE-INTACT (Neg); PROTEIN,URINE NEGATIVE (Neg); UROBILINOGEN,URINE 0.2 E.U/dL (0.2-1.0)
[2020-11-19 15:10] LABS: UA COLLECTION TYPE CLN CATCH MIDSTREAM
[2020-11-19 15:17] LABS: SQUAMOUS EPITHELIAL CELL,UR MODERATE /LPF (FEW)
[2020-11-19 15:19] LABS: RBC,URINE 0-2 /HPF (0-2)
[2020-11-19 15:20] LABS: WBC CLUMPS,URINE MODERATE /HPF (NEGATIVE); WBC,URINE TNTC /HPF (0-4)
[2020-11-19 15:23] LABS: BACTERIA,URINE 1+ /HPF (Neg)
[2020-11-19 15:36] LABS: ETHANOL < 0.010 GM/DL (0.0-0.010)
[2020-11-19 15:36] LABS: RENAL CELLS, URINE FEW /HPF
[2020-11-19] MEDS ORDERED: CEPH250T PO (16:14)
[2020-11-19] MEDS ORDERED: CefTRIAXone/D5W-Rocephin 1gm 50 ML IV ONE (16:15)
[2020-11-19] MEDS ORDERED: HYDR-3686 PO (16:19)
[2020-11-19 17:15] VITALS: BP 121/95
== END 2020-11-19 17:16 | disposition home or self-care (01) ==
LOC: ER 11:39
DX: N39.0 Urinary tract infection, site not specified (principal); R53.81 Other malaise; R42 Dizziness and giddiness; R53.1 Weakness; F32.9 Major depressive disorder, single episode, unspecified; Z98.890 Other specified postprocedural states; Z72.89 Other problems related to lifestyle; Z79.2 Long term (current) use of antibiotics; Z79.899 Other long term (current) drug therapy
CPT/HCPCS: 36415; 80053; 80320; 81001; 84145; 85025; 87088; 96361; 96365; 96375; 99285; J0696; J1200; J7030

== ENCOUNTER 2020-12-25 06:15 | Emergency (ER) | payer BC ==
[~2020-12-25] VITALS: Ht 162.6 cm; Wt 61.8 kg
[2020-12-25] MEDS ORDERED: naloxone 2mg/2ml inj IV ONE (06:25)
[2020-12-25 07:16] LABS: BASOPHILS # (AUTO) 0.1 X10'3 (0-0.2); BASOPHILS % (AUTO) 0.5 % (0-1); EOSINOPHILS # (AUTO) 0.5 X10'3 (0-0.9); EOSINOPHILS % (AUTO) 4.2 % (0-6); HEMATOCRIT 42.4 % (35.0-45.0); HEMOGLOBIN 14.3 g/dl (12.0-16.0); LYMPHOCYTES # (AUTO) 2.7 X10'3 (1.1-4.8); LYMPHOCYTES % (AUTO) 22.1 % (21-51); MEAN CORPUSCULAR HEMOGLOBIN 29.2 PG (27.0-31.0); MEAN CORPUSCULAR HGB CONC 33.6 g/dL (33.0-36.5); MEAN CORPUSCULAR VOLUME 86.6 FL (78-98); MEAN PLATELET VOLUME 6.8 FL (7.4-10.4); MONOCYTES # (AUTO) 0.6 X10'3 (0-0.9); MONOCYTES % (AUTO) 5.1 % (2-12); NEUTROPHILS # (AUTO) 8.4 X10'3 (1.8-7.7); NEUTROPHILS % (AUTO) 68.1 % (42-75); PLATELET COUNT 279 X10'3 (140-440); RED BLOOD COUNT 4.89 X10'6 (4.20-5.60); RED CELL DISTRIBUTION WIDTH 15.1 % (11.5-14.5); WHITE BLOOD COUNT 12.3 X10'3 (4.5-11.0)
[2020-12-25 07:44] LABS: ALBUMIN 4.4 G/DL (3.4-5.0); ALBUMIN/GLOBULIN RATIO 1.2 (1.1-1.5); ANION GAP 12 (8-16); ASPARTATE AMINO TRANSFERASE 23 U/L (10-37); BILIRUBIN,TOTAL 0.9 MG/DL (0.1-1.0); BLOOD UREA NITROGEN 26 MG/DL (7-18); BUN/CREATININE RATIO 15.8 (6.6-38.0); CALCIUM 9.2 MG/DL (8.5-10.1); CHLORIDE 104 MMOL/L (99-107); CREATININE 1.65 MG/DL (0.40-0.90); GLUCOSE 99 MG/DL (70-104); POTASSIUM 3.7 MMOL/L (3.5-5.1); SODIUM 143 MMOL/L (135-145); TOTAL CARBON DIOXIDE 26.7 MMOL/L (24-32); TOTAL PROTEIN 8.1 G/DL (6.4-8.2); eGFR 32 ML/MIN
[2020-12-25 07:45] LABS: ALANINE AMINOTRANSFERASE 28 U/L (12-78); ALKALINE PHOSPHATASE 178 IU/L (46-116)
[2020-12-25 07:48] LABS: TROPONIN I < 0.04 NG/ML (0.0-0.05)
[2020-12-25 07:53] LABS: ETHANOL < 0.010 GM/DL (0.0-0.010)
[2020-12-25 08:41] LABS: URINE AMPHETAMINE SCREEN POSITIVE (Neg); URINE BARBITUATE SCREEN NEGATIVE (Neg); URINE BENZODIAZEPINES SCREEN POSITIVE (Neg); URINE CANNABINOID SCREEN NEGATIVE (Neg); URINE COCAINE SCREEN NEGATIVE (Neg); URINE METHADONE SCREEN NEGATIVE (Neg); URINE OPIATE SCREEN NEGATIVE (Neg); URINE PHENCYCLIDINE SCREEN NEGATIVE (Neg)
[2020-12-25 08:42] LABS: CLARITY,URINE SLIGHTLY CLOUDY (Clear); COLOR,URINE ORANGE (Yellow); UA COLLECTION TYPE STRAIGHT CATH
[2020-12-25 08:44] LABS: BACTERIA,URINE NONE SEEN /HPF (Neg); MUCUS STRANDS FEW /LPF (Neg); RBC,URINE 0-2 /HPF (0-2); SQUAMOUS EPITHELIAL CELL,UR NONE SEEN /LPF (FEW); WBC,URINE 0-4 /HPF (0-4)
[2020-12-25 08:44] LABS: CKMB RELATIVE INDEX 3.1 RATIO (0-2.5); CREATINE KINASE 108 U/L (26-192)
[2020-12-25 08:45] LABS: AMORPHOUS URATES 1+; CAL OXALATE CRYSTALS 2+ /HPF (NEGATIVE); TRANSITIONAL EPI CELLS,URINE FEW /HPF
--- NOTE | 2020-12-25 10:13 | NUR ---
Pt is awake, alert, and talking on the phone with her mother. Pt stated that she wanted to be released so that she can go back to work.
--- NOTE | 2020-12-25 11:05 | NUR ---
Pt given and understands d/c instructions. Ambulatory with a steady gait.
[2020-12-25 11:06] VITALS: BP 132/84
== END 2020-12-25 11:05 | disposition home or self-care (01) ==
LOC: ER 06:16
DX: N18.9 Chronic kidney disease, unspecified (principal); F32.9 Major depressive disorder, single episode, unspecified; G62.9 Polyneuropathy, unspecified; F15.10 Other stimulant abuse, uncomplicated; F19.10 Other psychoactive substance abuse, uncomplicated; R41.82 Altered mental status, unspecified; F10.10 Alcohol abuse, uncomplicated; Z79.899 Other long term (current) drug therapy; Y90.9 Presence of alcohol in blood, level not specified
CPT/HCPCS: 36415; 70450; 71045; 80053; 80305; 80320; 81001; 82140; 82550; 82553; 82948; 83605; 84484; 85025; 87040; 93005; 96374; 99285; J2310

== ENCOUNTER 2021-02-15 09:39 | Emergency (ER) | payer BC ==
[~2021-02-15] VITALS: Ht 172.7 cm; Wt 61.4 kg
[2021-02-15 09:50] VITALS: BP 127/105
[2021-02-15] MEDS ORDERED: LORazepam 2 mg/ml vial IM ONE (10:50)
[2021-02-15] MEDS ORDERED: GABA300C PO (10:57)
== END 2021-02-15 12:15 | disposition home or self-care (01) ==
LOC: ER 09:39
DX: F10.239 Alcohol dependence with withdrawal, unspecified (principal); F32.9 Major depressive disorder, single episode, unspecified; F15.10 Other stimulant abuse, uncomplicated; Z79.899 Other long term (current) drug therapy
CPT/HCPCS: 96372; 99283; J2060

== ENCOUNTER 2021-03-17 13:49 | Emergency (ER) | payer BC ==
[~2021-03-17] VITALS: Ht 172.7 cm; Wt 61.0 kg
[2021-03-17] MEDS ORDERED: normal saline 1000ML IV soln IVB ONE (13:55)
[2021-03-17] MEDS ORDERED: folic acid 1mg/0.2ml inj IV ONE (13:55)
[2021-03-17] MEDS ORDERED: thiamine 100mg/ml 2ml inj. IV ONE (13:55)
[2021-03-17 13:57] VITALS: BP 133/92
[2021-03-17 14:25] LABS: BASOPHILS % (AUTO) 0.4 % (0-1); EOSINOPHILS % (AUTO) 0.3 % (0-6); HEMATOCRIT 49.9 % (35.0-45.0); HEMOGLOBIN 16.9 g/dl (12.0-16.0); LYMPHOCYTES # (AUTO) 3.3 X10'3 (1.1-4.8); LYMPHOCYTES % (AUTO) 34.4 % (21-51); MEAN CORPUSCULAR HEMOGLOBIN 29.1 PG (27.0-31.0); MEAN CORPUSCULAR HGB CONC 33.8 g/dL (33.0-36.5); MEAN PLATELET VOLUME 6.7 FL (7.4-10.4); MONOCYTES # (AUTO) 0.2 X10'3 (0-0.9); MONOCYTES % (AUTO) 2.4 % (2-12); NEUTROPHILS # (AUTO) 6.1 X10'3 (1.8-7.7); NEUTROPHILS % (AUTO) 62.5 % (42-75); PLATELET COUNT 365 X10'3 (140-440); RED CELL DISTRIBUTION WIDTH 14.7 % (11.5-14.5); WHITE BLOOD COUNT 9.7 X10'3 (4.5-11.0)
[2021-03-17 14:37] LABS: ALANINE AMINOTRANSFERASE 180 U/L (12-78); ALKALINE PHOSPHATASE 99 IU/L (46-116); ANION GAP 22 (8-16); ASPARTATE AMINO TRANSFERASE 139 U/L (10-37); BILIRUBIN,TOTAL 0.5 MG/DL (0.1-1.0); BLOOD UREA NITROGEN 26 MG/DL (7-18); BUN/CREATININE RATIO 20.2 (6.6-38.0); CALCIUM 8.3 MG/DL (8.5-10.1); CHLORIDE 102 MMOL/L (99-107); CREATININE 1.29 MG/DL (0.40-0.90); GLUCOSE 96 MG/DL (70-104); POTASSIUM 4.2 MMOL/L (3.5-5.1); SODIUM 142 MMOL/L (135-145); TOTAL CARBON DIOXIDE 18.3 MMOL/L (24-32); eGFR 43 ML/MIN
[2021-03-17 14:39] LABS: ETHANOL 0.292 GM/DL (0.0-0.010)
[2021-03-17] MEDS ORDERED: folic acid 1mg tablet PO ONE (14:45)
--- NOTE | 2021-03-17 14:51 | NUR ---
pt became very uncooperative, lunged at copier repair technician and staff, IV that was placed by another staff member fell out, cannula intact, pt received 200ml of normal saline prior to becoming combative, provider aware, Plan to dc pt with [employer] to detention
== END 2021-03-17 14:56 ==
LOC: ER 13:49
DX: F10.929 Alcohol use, unspecified with intoxication, unspecified (principal); E86.0 Dehydration; F32.9 Major depressive disorder, single episode, unspecified; E07.9 Disorder of thyroid, unspecified; F15.10 Other stimulant abuse, uncomplicated; Y90.0 Blood alcohol level of less than 20 mg/100 ml
CPT/HCPCS: 36415; 80053; 80320; 82948; 85025; 93005; 96374; 99284; J3411; J7030; 96361

== ENCOUNTER 2021-06-17 09:15 | Emergency (ER) | payer BC ==
[~2021-06-17] VITALS: Ht 172.7 cm; Wt 63.6 kg
[~2021-06-17 09:15] MED LIST changes: -FOLI1TAB16 PO; +FOLI1TAB27 PO
--- NOTE | 2021-06-17 09:39 | NUR ---
UNABLE TO OBTAIN BLOOD PRESSURE DUE TO EXCESSIVE MOTION IN TRIAGE AND YELLING
[2021-06-17] MEDS ORDERED: LORazepam 2 mg/ml vial IM ONE (10:05)
[2021-06-17] MEDS ORDERED: diphenhydrAMINE 50 mg/ml inj IM ONE ×2 (10:05→17:50)
[2021-06-17 10:38] LABS: BASOPHILS # (AUTO) 0.1 X10'3 (0-0.2); EOSINOPHILS # (AUTO) 0.3 X10'3 (0-0.9); EOSINOPHILS % (AUTO) 3.5 % (0-6); HEMATOCRIT 40.6 % (35.0-45.0); HEMOGLOBIN 13.9 g/dl (12.0-16.0); LYMPHOCYTES # (AUTO) 2.5 X10'3 (1.1-4.8); LYMPHOCYTES % (AUTO) 31.2 % (21-51); MEAN CORPUSCULAR HEMOGLOBIN 29.4 PG (27.0-31.0); MEAN CORPUSCULAR HGB CONC 34.2 g/dL (33.0-36.5); MONOCYTES # (AUTO) 0.3 X10'3 (0-0.9); MONOCYTES % (AUTO) 3.5 % (2-12); NEUTROPHILS % (AUTO) 60.8 % (42-75); PLATELET COUNT 301 X10'3 (140-440); RED BLOOD COUNT 4.73 X10'6 (4.20-5.60); RED CELL DISTRIBUTION WIDTH 13.8 % (11.5-14.5); WHITE BLOOD COUNT 8.1 X10'3 (4.5-11.0)
[2021-06-17 11:15] LABS: ALANINE AMINOTRANSFERASE 33 U/L (12-78); ALBUMIN 4.1 G/DL (3.4-5.0); ALBUMIN/GLOBULIN RATIO 1.4 (1.1-1.5); ANION GAP 12 (8-16); ASPARTATE AMINO TRANSFERASE 28 U/L (10-37); BILIRUBIN,TOTAL 0.3 MG/DL (0.1-1.0); BLOOD UREA NITROGEN 27 MG/DL (7-18); BUN/CREATININE RATIO 20.8 (6.6-38.0); CHLORIDE 111 MMOL/L (99-107); ETHANOL 0.142 GM/DL (0.0-0.010); GLUCOSE 92 MG/DL (70-104); POTASSIUM 4.7 MMOL/L (3.5-5.1); SODIUM 146 MMOL/L (135-145); TOTAL CARBON DIOXIDE 23.3 MMOL/L (24-32); TOTAL PROTEIN 7.1 G/DL (6.4-8.2); eGFR 42 ML/MIN
[2021-06-17 15:39] LABS: CLARITY,URINE CLEAR (Clear); COLOR,URINE YELLOW (Yellow); GLUCOSE, URINE NEGATIVE (Neg); KETONES,URINE NEGATIVE (Neg); LEUKOCYTE ESTERASE ,URINE TRACE (Neg); NITRITES, URINE NEGATIVE (Neg); OCCULT BLOOD,URINE TRACE-INTACT (Neg); PROTEIN,URINE NEGATIVE (Neg); UROBILINOGEN,URINE 0.2 E.U/dL (0.2-1.0)
[2021-06-17 15:46] LABS: URINE AMPHETAMINE SCREEN POSITIVE (Neg); URINE BARBITUATE SCREEN NEGATIVE (Neg); URINE BENZODIAZEPINES SCREEN NEGATIVE (Neg); URINE CANNABINOID SCREEN NEGATIVE (Neg); URINE COCAINE SCREEN NEGATIVE (Neg); URINE METHADONE SCREEN NEGATIVE (Neg); URINE OPIATE SCREEN NEGATIVE (Neg); URINE PHENCYCLIDINE SCREEN NEGATIVE (Neg)
[2021-06-17 15:48] LABS: UA COLLECTION TYPE NON-SPECIFIED
[2021-06-17 15:49] LABS: BACTERIA,URINE NONE SEEN /HPF (Neg); HYALINE CASTS 0-3 /LPF (NEGATIVE); RBC,URINE 0-2 /HPF (0-2); SQUAMOUS EPITHELIAL CELL,UR FEW /LPF (FEW); WBC,URINE 0-4 /HPF (0-4)
--- NOTE | 2021-06-17 17:30 | NUR ---
PT SEEN ATTEMPTING TO DRINK HAND FAN MAIL EDITOR FROM THE ROOM. PT STOPPED AND DEVICE QUICKLY REMOVED FROM THE WALL FOR PT SAFETY. NADJA ADLER AND DIRECTOR ONCOLOGY MARY MADE AWARE
[2021-06-17] MEDS ORDERED: haloperidol lactate 5mg/ml inj IM ONE (17:50)
[2021-06-17] MEDS ORDERED: GABA600T13 PO (17:53)
[2021-06-17] MEDS ORDERED: TRAM50TA2 PO (17:53)
--- NOTE | 2021-06-17 17:53 | NUR ---
MED REC DONE BASED OFF EXTERNAL MED REC PT IS POOR HISTORIAN
--- NOTE | 2021-06-17 19:05 | NUR ---
Patient arrived on the unit in no obvious distress noted. Patient is agitated and anxoius. Breathing spontanously on room air. Patient states that she is still having suicidal ideation with no plans at this time
[2021-06-17] MEDS ORDERED: traMADol 50MG tablet PO PRN (23:00)
--- NOTE | 2021-06-18 02:14 | NUR ---
Patient asleep bnut easily arouse. No obvious distress noted.Observation ongoing
--- NOTE | 2021-06-18 04:30 | NUR ---
Patient asleep in no obvious distress. Observation ongoing.
--- NOTE | 2021-06-18 05:27 | NUR ---
Patient asleep but easily arouse. No obvious distress noted. Observation ongoing
[2021-06-18] MEDS ORDERED: gabapentin 300mg capsule PO SCH (06:00)
--- NOTE | 2021-06-18 07:06 | NUR ---
PT. CARE ASSUMED FROM LEORA NARVAEZ. PT. VISIBLE ON THE UNIT RESTING QUIETLY WITH EYES CLOSED.
--- NOTE | 2021-06-18 08:27 | NUR ---
BREAKFAST TRAY RECEIVED.
--- NOTE | 2021-06-18 09:55 | NUR ---
PT. PRESENTS CALM AND COOPERATIVE WITH MORNING ASSESSMENT. PT. DENIES ANY CURRENT SI/HI OR AH/VH. COMPLIANT WITH SCHEDULED MEDICATIONS. DENIES ANY OTHER COMPLAINTS . [facility] CLINICAN AT BEDSIDE FOR EVAULATION. STAFF WILL CONTINUE TO MONITOR FOR SAFETY.
--- NOTE | 2021-06-18 10:40 | NUR ---
PT. INFORMED BY [facility] CLINICIAN OF INTENT TO DISCHARGE HOME WITH HER MOTHER. AWAITING FINAL DISCHARGE PAPERWORK FROM DOCTOR.
--- NOTE | 2021-06-18 11:02 | NUR ---
PT. PROVIDED WITH DISCHARGE INSTRUCTIONS AND PERSONAL CLOTHING RETURNED. AWAITNG ON PATIENT'S MOTHER FOR TRANSPORT TO HOME.
--- NOTE | 2021-06-18 11:47 | NUR ---
PT. MOTHER IN HOSPITAL LOBBY WAITING ON PATIENT TO BE DISCHARGED. PT. ESCORTED OFF UNIT BY TECH.
[2021-06-18 11:48] VITALS: BP 124/82
== END 2021-06-18 11:57 | disposition home or self-care (01) ==
LOC: ER 09:15
DX: R45.851 Suicidal ideations (principal); Z20.822 Contact with and (suspected) exposure to COVID-19; F32.A Depression, unspecified; F15.90 Other stimulant use, unspecified, uncomplicated; Z98.890 Other specified postprocedural states; Z72.89 Other problems related to lifestyle; Z79.899 Other long term (current) drug therapy
CPT/HCPCS: 36415; 80053; 80305; 80320; 81001; 84443; 85025; 87635; 96372; 99285; C9803; J1200; J1630; J2060

== ENCOUNTER 2021-12-13 16:39 | Emergency (ER) | payer BC ==
[~2021-12-13] VITALS: Ht 170.2 cm; Wt 61.4 kg
[~2021-12-13 16:39] MED LIST changes: -BUPR200T3 PO; -DULO60CA65 PO; -FER325T PO; -FOLI1TAB27 PO; -GABA300C PO; +GABA600T13 PO; -LACT1CAP26 PO; -PANT40TA54 PO; +TRAM50TA2 PO
[2021-12-13 17:00] VITALS: BP 150/105
[2021-12-13 17:49] LABS: URINE HCG NEGATIVE (NEG)
[2021-12-13 18:04] LABS: CLARITY,URINE CLEAR (Clear); COLOR,URINE ORANGE (Yellow)
[2021-12-13 18:09] LABS: UA COLLECTION TYPE OTHER
[2021-12-13 18:12] LABS: BACTERIA,URINE NONE SEEN /HPF (Neg); RBC,URINE 0-2 /HPF (0-2); SQUAMOUS EPITHELIAL CELL,UR FEW /LPF (FEW); WBC,URINE 0-4 /HPF (0-4)
[2021-12-13] MEDS ORDERED: amox tr/potassium clavulanate 875/125mg TAB PO ONE (18:20)
[2021-12-13 18:26] LABS: BASOPHILS % (AUTO) 0.7 % (0-1); EOSINOPHILS # (AUTO) 0.2 X10'3 (0-0.9); EOSINOPHILS % (AUTO) 2.8 % (0-6); HEMATOCRIT 42.2 % (35.0-45.0); HEMOGLOBIN 14.6 g/dl (12.0-16.0); LYMPHOCYTES # (AUTO) 2.7 X10'3 (1.1-4.8); LYMPHOCYTES % (AUTO) 38.3 % (21-51); MEAN CORPUSCULAR HEMOGLOBIN 29.3 PG (27.0-31.0); MEAN CORPUSCULAR HGB CONC 34.6 g/dL (33.0-36.5); MEAN CORPUSCULAR VOLUME 84.9 FL (78-98); MEAN PLATELET VOLUME 6.5 FL (7.4-10.4); MONOCYTES # (AUTO) 0.4 X10'3 (0-0.9); MONOCYTES % (AUTO) 5.5 % (2-12); NEUTROPHILS # (AUTO) 3.7 X10'3 (1.8-7.7); NEUTROPHILS % (AUTO) 52.7 % (42-75); PLATELET COUNT 300 X10'3 (140-440); RED BLOOD COUNT 4.98 X10'6 (4.20-5.60); RED CELL DISTRIBUTION WIDTH 13.2 % (11.5-14.5)
[2021-12-13] MEDS ORDERED: AMOX-117 PO (18:33)
[2021-12-13 18:35] LABS: ALANINE AMINOTRANSFERASE 61 U/L (12-78); ALBUMIN 3.6 G/DL (3.4-5.0); ALBUMIN/GLOBULIN RATIO 1.1 (1.1-1.5); ALKALINE PHOSPHATASE 79 IU/L (46-116); ANION GAP 7 (8-16); ASPARTATE AMINO TRANSFERASE 37 U/L (10-37); BILIRUBIN,TOTAL 0.5 MG/DL (0.1-1.0); BLOOD UREA NITROGEN 14 MG/DL (7-18); BUN/CREATININE RATIO 12.3 (6.6-38.0); CALCIUM 8.9 MG/DL (8.5-10.1); CHLORIDE 103 MMOL/L (99-107); CREATININE 1.14 MG/DL (0.40-0.90); GLUCOSE 105 MG/DL (70-104); LIPASE 53 U/L (73-393); SODIUM 140 MMOL/L (135-145); TOTAL CARBON DIOXIDE 29.8 MMOL/L (24-32); TOTAL PROTEIN 6.9 G/DL (6.4-8.2); eGFR 49 ML/MIN
== END 2021-12-13 18:43 | disposition home or self-care (01) ==
LOC: ER 16:40
DX: K51.80 Other ulcerative colitis without complications (principal); E07.9 Disorder of thyroid, unspecified; F32.A Depression, unspecified; F15.10 Other stimulant abuse, uncomplicated; Z79.899 Other long term (current) drug therapy
CPT/HCPCS: 36415; 80053; 81001; 81025; 83690; 85025; 99283

== ENCOUNTER 2022-01-25 04:54 | Emergency (ER) | payer BC ==
[~2022-01-25] VITALS: Ht 172.7 cm; Wt 61.4 kg
[2022-01-25 07:47] LABS: ALANINE AMINOTRANSFERASE 31 U/L (12-78); ALBUMIN 3.8 G/DL (3.4-5.0); ALBUMIN/GLOBULIN RATIO 1.3 (1.1-1.5); ALKALINE PHOSPHATASE 63 IU/L (46-116); ANION GAP 6 (8-16); ASPARTATE AMINO TRANSFERASE 23 U/L (10-37); BILIRUBIN,TOTAL 0.6 MG/DL (0.1-1.0); BLOOD UREA NITROGEN 20 MG/DL (7-18); BUN/CREATININE RATIO 14.5 (6.6-38.0); CALCIUM 9.4 MG/DL (8.5-10.1); CHLORIDE 104 MMOL/L (99-107); CREATININE 1.38 MG/DL (0.40-0.90); ETHANOL < 0.010 GM/DL (0.0-0.010); GLUCOSE 98 MG/DL (70-104); POTASSIUM 3.4 MMOL/L (3.5-5.1); SODIUM 137 MMOL/L (135-145); TOTAL CARBON DIOXIDE 27.4 MMOL/L (24-32); TOTAL PROTEIN 6.8 G/DL (6.4-8.2); eGFR 40 ML/MIN
[2022-01-25 07:53] LABS: BASOPHILS # (AUTO) 0.1 X10'3 (0-0.2); BASOPHILS % (AUTO) 0.9 % (0-1); EOSINOPHILS # (AUTO) 0.4 X10'3 (0-0.9); HEMOGLOBIN 13.3 g/dl (12.0-16.0); LYMPHOCYTES # (AUTO) 2.8 X10'3 (1.1-4.8); LYMPHOCYTES % (AUTO) 29.2 % (21-51); MEAN CORPUSCULAR HEMOGLOBIN 30.2 PG (27.0-31.0); MEAN CORPUSCULAR HGB CONC 34.9 g/dL (33.0-36.5); MEAN CORPUSCULAR VOLUME 86.7 FL (78-98); MEAN PLATELET VOLUME 7.3 FL (7.4-10.4); MONOCYTES # (AUTO) 0.5 X10'3 (0-0.9); MONOCYTES % (AUTO) 5.2 % (2-12); NEUTROPHILS # (AUTO) 5.8 X10'3 (1.8-7.7); NEUTROPHILS % (AUTO) 60.7 % (42-75); PLATELET COUNT 267 X10'3 (140-440); RED BLOOD COUNT 4.38 X10'6 (4.20-5.60); RED CELL DISTRIBUTION WIDTH 13.9 % (11.5-14.5); WHITE BLOOD COUNT 9.6 X10'3 (4.5-11.0)
[2022-01-25 08:47] LABS: CLARITY,URINE CLEAR (Clear); COLOR,URINE YELLOW (Yellow); GLUCOSE, URINE NEGATIVE (Neg); KETONES,URINE NEGATIVE (Neg); LEUKOCYTE ESTERASE ,URINE NEGATIVE (Neg); NITRITES, URINE NEGATIVE (Neg); OCCULT BLOOD,URINE TRACE-INTACT (Neg); PH,URINE 5.5 (4.8-8.0); PROTEIN,URINE NEGATIVE (Neg); UROBILINOGEN,URINE 0.2 E.U/dL (0.2-1.0)
[2022-01-25 09:00] LABS: UA COLLECTION TYPE CLN CATCH MIDSTREAM
[2022-01-25 09:02] LABS: BACTERIA,URINE FEW /HPF (Neg); RBC,URINE 0-2 /HPF (0-2); SQUAMOUS EPITHELIAL CELL,UR FEW /LPF (FEW); WBC,URINE 0-4 /HPF (0-4)
[2022-01-25 09:20] LABS: URINE AMPHETAMINE SCREEN POSITIVE (Neg); URINE BARBITUATE SCREEN NEGATIVE (Neg); URINE BENZODIAZEPINES SCREEN NEGATIVE (Neg); URINE CANNABINOID SCREEN NEGATIVE (Neg); URINE COCAINE SCREEN NEGATIVE (Neg); URINE METHADONE SCREEN NEGATIVE (Neg); URINE OPIATE SCREEN NEGATIVE (Neg); URINE PHENCYCLIDINE SCREEN NEGATIVE (Neg)
--- NOTE | 2022-01-25 09:49 | NUR ---
PT SITTING IN THE ROOM, IN NO APPARENT DISTRESS. SHE STATES SHE IS "COMFORTABLE" AND "ISNT IN PAIN".
[2022-01-25 10:34] VITALS: BP 101/71
== END 2022-01-25 10:38 | disposition home or self-care (01) ==
LOC: ER 04:55
DX: F15.20 Other stimulant dependence, uncomplicated (principal); F17.200 Nicotine dependence, unspecified, uncomplicated
CPT/HCPCS: 36415; 80053; 80305; 80320; 81001; 82140; 82948; 85025; 93005; 99284

== ENCOUNTER 2023-05-18 01:54 | Emergency (ER) | payer BC ==
[~2023-05-18] VITALS: Ht 172.7 cm; Wt 68.5 kg
[2023-05-18 02:34] LABS: BASOPHILS # (AUTO) 0.1 X10'3 (0-0.2); BASOPHILS % (AUTO) 0.4 % (0-1); EOSINOPHILS # (AUTO) 0.4 X10'3 (0-0.9); EOSINOPHILS % (AUTO) 2.7 % (0-6); HEMATOCRIT 42.5 % (35.0-45.0); HEMOGLOBIN 14.4 g/dl (12.0-16.0); LYMPHOCYTES # (AUTO) 2.2 X10'3 (1.1-4.8); LYMPHOCYTES % (AUTO) 16.7 % (21-51); MEAN CORPUSCULAR HEMOGLOBIN 30.3 PG (27.0-31.0); MEAN CORPUSCULAR HGB CONC 33.9 g/dL (33.0-36.5); MEAN CORPUSCULAR VOLUME 89.2 FL (78-98); MEAN PLATELET VOLUME 7.5 FL (7.4-10.4); MONOCYTES # (AUTO) 0.4 X10'3 (0-0.9); MONOCYTES % (AUTO) 3.3 % (2-12); NEUTROPHILS % (AUTO) 76.9 % (42-75); PLATELET COUNT 217 X10'3 (140-440); RED BLOOD COUNT 4.76 X10'6 (4.20-5.60); RED CELL DISTRIBUTION WIDTH 13.2 % (11.5-14.5); WHITE BLOOD COUNT 13.1 X10'3 (4.5-11.0)
[2023-05-18 02:47] LABS: ALANINE AMINOTRANSFERASE 24 U/L (12-78); ALBUMIN 3.8 G/DL (3.4-5.0); ALBUMIN/GLOBULIN RATIO 1.1 (1.1-1.5); ALKALINE PHOSPHATASE 92 IU/L (46-116); ANION GAP 8 (8-16); ASPARTATE AMINO TRANSFERASE 16 U/L (10-37); BILIRUBIN,TOTAL 0.3 MG/DL (0.1-1.0); BLOOD UREA NITROGEN 28 MG/DL (7-18); BUN/CREATININE RATIO 18.9 (10.0-20.0); CHLORIDE 105 MMOL/L (99-107); CREATININE 1.48 MG/DL (0.40-0.90); GLUCOSE 97 MG/DL (70-104); LIPASE 21 U/L (16-77); POTASSIUM 3.9 MMOL/L (3.5-5.1); SODIUM 142 MMOL/L (135-145); TOTAL CARBON DIOXIDE 28.9 MMOL/L (24-32); TOTAL PROTEIN 7.4 G/DL (6.4-8.2); eCRCL 42 ML/MIN; eGFR 36 ML/MIN
[2023-05-18] MEDS ORDERED: ondansetron/PF 4mg/2ml inj IV ONE (03:35)
[2023-05-18] MEDS ORDERED: morphine 4 MG/ML inj SYRINge IV ONE (03:35)
[2023-05-18 03:46] LABS: ETHANOL < 10 MG/DL (<10)
[2023-05-18 03:58] LABS: URINE HCG NEGATIVE (NEG)
[2023-05-18 04:16] LABS: BILIRUBIN,URINE NEGATIVE (Neg); CLARITY,URINE CLEAR (Clear); COLOR,URINE YELLOW (Yellow); GLUCOSE, URINE NEGATIVE (Neg); KETONES,URINE NEGATIVE (Neg); LEUKOCYTE ESTERASE ,URINE NEGATIVE (Neg); NITRITES, URINE NEGATIVE (Neg); OCCULT BLOOD,URINE NEGATIVE (Neg); PROTEIN,URINE NEGATIVE (Neg); UROBILINOGEN,URINE 0.2 E.U/dL (0.2-1.0)
[2023-05-18 04:22] LABS: UA COLLECTION TYPE CLN CATCH MIDSTREAM
[2023-05-18 04:26] LABS: URINE AMPHETAMINE SCREEN NEGATIVE (Neg); URINE BARBITUATE SCREEN NEGATIVE (Neg); URINE BENZODIAZEPINES SCREEN POSITIVE (Neg); URINE CANNABINOID SCREEN NEGATIVE (Neg); URINE COCAINE SCREEN NEGATIVE (Neg); URINE METHADONE SCREEN NEGATIVE (Neg); URINE OPIATE SCREEN POSITIVE (Neg); URINE PHENCYCLIDINE SCREEN NEGATIVE (Neg)
[2023-05-18 05:22] VITALS: BP 113/73; PULSE 80; RESP 16; TEMP 98.2; O2SAT 95
== END 2023-05-18 05:25 | disposition home or self-care (01) ==
LOC: ER 01:55
DX: R10.9 Unspecified abdominal pain (principal); E07.9 Disorder of thyroid, unspecified
CPT/HCPCS: 36415; 74176; 80053; 80305; 80320; 81003; 81025; 83690; 84145; 85025; 96374; 96375; 99285; J2270; J2405

== ENCOUNTER 2024-08-26 17:10 | Emergency (ER) | payer BC ==
[~2024-08-26] VITALS: Ht 172.7 cm; Wt 62.3 kg
[~2024-08-26 17:10] MED LIST changes: +GABA-1405 PO; -GABA600T13 PO
--- NOTE | 2024-08-26 18:09 | Physician Documentation ---
History of Present Illness ~ Chief Complaint: ETOH Stated Complaint: ETOH Time Seen by MD: 17:46 Primary Medical Doctor: Vangie Sanchez Mode of Arrival: EMS, Stretcher HPI 59-year-old female presents to the ED with concerns over her alcohol abuse disorder. She states she drinks 2-3 750 mL bottles of vodka daily. She states she has been on a binge for the last 2-3 months after being sober for two three years. States she feels like a failure and says that her son is concerned about her status and life. Denies any HI or SI. Is forthcoming about her problems. Denies any current medical problems other than her alcoholism Tetanus within 5 years?: Yes ("2018") Medication Reconciliation Allergies: Coded Allergies: No Known Allergies (Unverified , 08/26/24) Scheduled Gabapentin (Gabapentin), 1 TAB PO 5XD, (Reported) Levothyroxine Sodium (Levothyroxine Sodium), 75 MCG PO Q24H@07 Temazepam (Temazepam), 1 CAP PO HSPRN Scheduled PRN Tramadol Hcl (Tramadol Hcl), 1 TAB PO TID PRN for pain, (Reported) Past Medical History Past Medical History: Intracerebral Hemorrahage, Peripheral Neuropathy, Inflammatory Bowel Dz, UTI, Thyroid (unspecified), Depression Past Surgical History: orthopedic surgeries, other Other Past Surgical History: Unilateral nephrectomy Patient History: Patient reports no known family medical history. Alcohol Use: Abuse Drug Use: methamphetamine Lives with: Family Lives In: Home Occupation: employed Review of Systems All Other Systems at this time: Reviewed and Negative ROS As stated above in the HPI, otherwise all systems are reviewed and negative. Physical Exam Vital Signs: Temperature: 97.8, Source: Oral, Heart Rate: 90, Respiratory Rate: 16, BP: 109/75, Pulse Oximetry: 99, Weight: 62.270 Oxygen Flow Rate: 0 Physical Exam General: Alert, slurred speech Respiratory: Lungs clear, no respiratory distress. Cardiovascular: Regular rate and rhythm, no murmurs. Gastrointestinal: Soft, nontender, nondistended. Bowels sounds present. Neurologic: Oriented x4. Psychiatric: Tearful Skin: Normal color, warm and dry. No edema, no ecchymosis. Progress Results/Orders Results/Orders Medications Received in ER Medications (Trade) Dose Ordered Sig/Ivan Route PRN Reason Start Time Stop Time Status Last Admin Dose Admin (sodium chloride 1000ml IV soln) 2,000 ml ONCE ONCE IVB 08/26/24 18:20 08/26/24 18:21 DC 08/26/24 18:25 2,000 ML (Haldol) 5 mg ONCE ONCE IM 08/26/24 18:35 08/26/24 18:36 DC 08/26/24 18:42 5 MG Vital Signs 08/26/24 08/26/24 08/26/24 08/26/24 17:20 17:36 18:38 18:43 Temp 97.8 Pulse 90 120 Resp 20 16 18 B/P (MAP) 109/75 Pulse Ox 99 100 O2 Flow Rate 0 08/26/24 08/26/24 20:04 20:49 Pulse 94 100 Resp 17 18 B/P (MAP) 101/98 (99) 121/77 (92) Pulse Ox 96 95 Laboratory Tests Test 08/26/24 18:23 White Blood Count 9.1 Red Blood Count 4.77 Hemoglobin 14.1 Hematocrit 42.4 Mean Corpuscular Volume 89.1 Mean Corpuscular Hemoglobin 29.6 Mean Corpuscular Hemoglobin Concent 33.2 Red Cell Distribution Width 13.4 Platelet Count 312 Mean Platelet Volume 6.8 L Neutrophils (%) (Auto) 76.1 H Lymphocytes (%) (Auto) 20.6 L Monocytes (%) (Auto) 2.3 Eosinophils (%) (Auto) 0.3 Basophils (%) (Auto) 0.7 Neutrophils # (Auto) 6.9 Lymphocytes # (Auto) 1.9 Monocytes # (Auto) 0.2 Eosinophils # (Auto) 0.0 Basophils # (Auto) 0.1 CBC Comment Sodium Level 144 Potassium Level 3.6 Chloride Level 105 Carbon Dioxide Level 26.1 Anion Gap 13 Blood Urea Nitrogen 23 H Creatinine 0.87 Estimated GFR/1.73 m2 67 BUN/Creatinine Ratio 26.4 H Glucose Level 73 Calcium Level 8.2 L Total Bilirubin 0.3 Aspartate Amino Transf (AST/SGOT) 22 Alanine Aminotransferase (ALT/SGPT) 27 Alkaline Phosphatase 106 Total Protein 7.1 Albumin 3.9 Globulin 3.2 Albumin/Globulin Ratio 1.2 Lipase 16 Chemistry Comments Medical Decision Making Findings This patient was signed out to me by vandana in [facility] nurse practitioner. The patient came here for alcohol intoxication and was sleeping when I evaluated her after I got the sign out. The lab work was unremarkable. The patient was given a L bolus of normal saline. She was allowed of rest and discharged home when she was sober. Differential Dx:Considerations: Intoxication - ETOH, Intoxication - other drug, Sub. Abuse -continuous, Sub. Abuse-intermittent, Skull fracture, Fracture - other bone, Personality disorder, Closed head injury, Cervical spine injury, Abrasion, Confusion, Hematoma, Laceration, Foreign body, Dehydration, Encephalopathy, Hepatitis, Pancreatitis, Thiamine deficiency, Other Departure Disposition: HOME / SELF CARE / HOMELESS Impression: Primary Impression: Alcohol intoxication Condition: Stable Discharge Instructions: Alcohol Intoxication Additional Instructions: I suggest you stopped drinking. Keep herself well hydrated. Follow up with the primary care physician for recheck in the next couple of days Referrals: NO PRIMARY CARE PROVIDER (PCP) Signature Scribe Signature: No scribe Attestation: The note accurately reflects work and decisions made by me.Barry KEARNS 08/26/24 22:44 REY MITCHELL NP Aug 26, 2024 18:09 BARRY ROBERTO Aug 26, 2024 22:44
[2024-08-26] MEDS: normal saline 1000ML IV soln IVB ONE (18:25)
[2024-08-26] MEDS: haloperidol lactate 5mg/ml inj IM ONE (18:42)
[2024-08-26 18:48] LABS: BASOPHILS # (AUTO) 0.1 X10'3 (0-0.2); BASOPHILS % (AUTO) 0.7 % (0-1); EOSINOPHILS % (AUTO) 0.3 % (0-6); HEMATOCRIT 42.4 % (35.0-45.0); HEMOGLOBIN 14.1 g/dl (12.0-16.0); LYMPHOCYTES # (AUTO) 1.9 X10'3 (1.1-4.8); LYMPHOCYTES % (AUTO) 20.6 % (21-51); MEAN CORPUSCULAR HEMOGLOBIN 29.6 PG (27.0-31.0); MEAN CORPUSCULAR HGB CONC 33.2 g/dL (33.0-36.5); MEAN CORPUSCULAR VOLUME 89.1 FL (78-98); MEAN PLATELET VOLUME 6.8 FL (7.4-10.4); MONOCYTES # (AUTO) 0.2 X10'3 (0-0.9); MONOCYTES % (AUTO) 2.3 % (2-12); NEUTROPHILS # (AUTO) 6.9 X10'3 (1.8-7.7); NEUTROPHILS % (AUTO) 76.1 % (42-75); PLATELET COUNT 312 X10'3 (140-440); RED BLOOD COUNT 4.77 X10'6 (4.20-5.60); RED CELL DISTRIBUTION WIDTH 13.4 % (11.5-14.5); WHITE BLOOD COUNT 9.1 X10'3 (4.5-11.0)
[2024-08-26 19:04] LABS: ALANINE AMINOTRANSFERASE 27 U/L (12-78); ALBUMIN 3.9 G/DL (3.4-5.0); ALBUMIN/GLOBULIN RATIO 1.2 (1.1-1.5); ALKALINE PHOSPHATASE 106 IU/L (46-116); ANION GAP 13 (8-16); ASPARTATE AMINO TRANSFERASE 22 U/L (10-37); BILIRUBIN,TOTAL 0.3 MG/DL (0.1-1.0); BLOOD UREA NITROGEN 23 MG/DL (7-18); BUN/CREATININE RATIO 26.4 (10.0-20.0); CALCIUM 8.2 MG/DL (8.5-10.1); CHLORIDE 105 MMOL/L (99-107); CREATININE 0.87 MG/DL (0.40-0.90); GLUCOSE 73 MG/DL (70-104); LIPASE 16 U/L (16-77); POTASSIUM 3.6 MMOL/L (3.5-5.1); SODIUM 144 MMOL/L (135-145); TOTAL CARBON DIOXIDE 26.1 MMOL/L (24-32); TOTAL PROTEIN 7.1 G/DL (6.4-8.2); eCRCL 68 ML/MIN; eGFR 67 ML/MIN
[2024-08-26 23:46] VITALS: BP 140/87; PULSE 78; RESP 15; TEMP 97.8; O2SAT 100
== END 2024-08-26 23:49 | disposition home or self-care (01) ==
LOC: ER 17:10
DX: F10.129 Alcohol abuse with intoxication, unspecified (principal); Y90.9 Presence of alcohol in blood, level not specified
CPT/HCPCS: 36415; 80053; 83690; 85025; 96360; 96361; 96372; 99285; J1630; J7030

== ENCOUNTER 2024-10-30 20:48 | Emergency (ER) | payer BC ==
[~2024-10-30] VITALS: Ht 172.7 cm; Wt 61.4 kg
[2024-10-30] MEDS ORDERED: SULF1TAB45 PO (21:35)
--- NOTE | 2024-10-30 21:36 | Physician Documentation ---
History of Present Illness ~ Chief Complaint: Bite-insect Stated Complaint: LEG INFECTION Time Seen by MD: 21:01 Primary Medical Doctor: Vangie Sanchez HPI 59-year-old female presents to the ED with a complaint of right lower extremity insect bite in infection. States she not exactly sure what bit her but reports that it has turned black and painful and begun to drain purulent discharge .denies any fevers. Tetanus within 5 years?: Yes ("2018") Medication Reconciliation Allergies: Coded Allergies: No Known Allergies (Unverified , 08/26/24) Scheduled Gabapentin (Gabapentin), 1 TAB PO 5XD, (Reported) Levothyroxine Sodium (Levothyroxine Sodium), 75 MCG PO Q24H@07 Sulfamethoxazole/Trimethoprim (Septra Ds Tab), 1 TAB PO Q12H Temazepam (Temazepam), 1 CAP PO HSPRN Scheduled PRN Tramadol Hcl (Tramadol Hcl), 1 TAB PO TID PRN for pain, (Reported) Past Medical History Past Medical History: Intracerebral Hemorrahage, Peripheral Neuropathy, Inflammatory Bowel Dz, UTI, Thyroid (unspecified), Depression Past Surgical History: orthopedic surgeries, other Other Past Surgical History: Unilateral nephrectomy Patient History: Patient reports no known family medical history. Alcohol Use: Abuse Drug Use: methamphetamine Lives with: Family Lives In: Home Occupation: employed Review of Systems All Other Systems at this time: Reviewed and Negative ROS As stated above in the HPI, otherwise all systems are reviewed and negative. Physical Exam Vital Signs: Temperature: 98.0, Heart Rate: 103, Respiratory Rate: 16, BP: 134/84, Pulse Oximetry: 97, Weight: 61.360 Oxygen Flow Rate: 0 Physical Exam General: Alert, no apparent distress. . Extremities: Normal range of motion, no deformity. right medial aspect of LE 3 cm dark colored infection. with surrounding erythema and purulent discharge Neurologic: Oriented x4. Psychiatric: Normal mood and affect. Skin: Normal color, warm and dry. No edema, no ecchymosis. Progress Results/Orders Results/Orders Completed Orders - SELVIN MITCHELL NP Sulfamethox/Trimetho. Ds Tab (Septra Ds (10/30/24 21:30) Vital Signs 10/30/24 10/30/24 20:55 22:06 Temp 98.0 98.6 Pulse 103 99 Resp 16 18 B/P (MAP) 134/84 132/82 Pulse Ox 97 99 O2 Flow Rate 0 Medical Decision Making Findings Going to treat patient's suspected soft tissue infection empirically with sulfa for MRSA coverage.. Does not present in his toxic or acutely ill. In her abscess or wound is already draining so I do not see any reason to I and D it. We will advise her of a close follow up Differential Dx:Considerations: Include: Abrasion, Allergic reaction, Anaphylaxis, Cellulitis, Contusion, Fracture, Hematoma, Insect envenomation, Laceration, Neurovascular injury, Punture wound, Retained foreign body, Urticaria, Other Departure Disposition: HOME / SELF CARE / HOMELESS Impression: Primary Impression: Cellulitis Additional Impressions: Insect bites Bee sting Condition: Stable Discharge Instructions: Insect Bite, Adult, [id number] Referrals: NO PRIMARY CARE PROVIDER (PCP) Prescriptions Sulfamethoxazole/Trimethoprim (Septra Ds Tab) 800 Mg/160 Mg Tablet 1 TAB PO Q12H for 10 Days, #20 TAB Prov: SELVIN MITCHELL NP 10/30/24 Signature Scribe Signature: f Attestation: Scribed for Selvin Mitchell Packager And Strapper by Selvin Bailey NP . 10/31/24 22:45 SELVIN MITCHELL NP Oct 30, 2024 21:35
[2024-10-30] MEDS: sulfamethoxazole/trimethoprim DS (800/160mg) tablet PO ONE (21:39)
[2024-10-30 22:06] VITALS: BP 132/82; PULSE 99; RESP 18; TEMP 98.6; O2SAT 99
== END 2024-10-30 22:07 | disposition home or self-care (01) ==
LOC: ER 20:49
DX: S80.861A Insect bite (nonvenomous), right lower leg, initial encounter (principal); L03.115 Cellulitis of right lower limb; F15.90 Other stimulant use, unspecified, uncomplicated; F32.A Depression, unspecified; W57.XXXA Bitten or stung by nonvenomous insect and other nonvenomous arthropods, initial encounter; Y93.89 Activity, other specified; Y92.89 Other specified places as the place of occurrence of the external cause; Y99.8 Other external cause status
CPT/HCPCS: 99283